=== PATIENT | male | born 2000 | race Caucasian/White ===

== ENCOUNTER → 2021-07-12 09:58 | Outpatient (CLI) | payer BC, SELFPAY | PROVIDERS: PCP Family Medicine; Visit Provider Nurse Practitioner | DX: Z20.822 Contact with and (suspected) exposure to COVID-19 (principal) | CPT/HCPCS: C9803; U0003; U0005 ==

== ENCOUNTER 2021-07-14 10:12 | Emergency (ER) | payer BC, SELFPAY ==
[2021-07-14 10:29] VITALS: BP 148/90; PULSE 77; RESP 16; TEMP 36.8; O2SAT 97; BMI 34.9
--- NOTE | 2021-07-14 10:56 | HMH.EDUTC ---
[facility] [place] Clinical Impression: Allergic reaction Qualifiers: Encounter type: initial encounter Qualified Code(s): T78.40XA - Allergy, unspecified, initial encounter Disposition: Home, Self-Care Condition on Discharge: Good Instructions: DI for General Allergic Reactions Additional Instructions: Avoid contact with the offending substance. Don't put the topical steroids (triamcinolone) on your face or your groin. Follow up with your regular doctor. 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 Prescriptions: Loratadine [Claritin 10mg Tablet] 10 mg PO DAILY 14 Days #14 tab Transmission Status: Received by [id number] methylPREDNISolone [Medrol] 4 mg PO DIRECTED 6 Days #21 packet Transmission Status: Received by [id number] Famotidine [Pepcid 20mg Tablet] 20 mg PO DAILY 14 Days #14 tab Transmission Status: Received by [id number] hydrOXYzine pamoate [Vistaril 25mg capsule] 25 mg PO Q6H PRN #30 cap PRN Reason: Itching Transmission Status: Received by [id number] Referrals: Shiva Balbuena MD [Primary Care Provider] - Forms: Work/School Release Time of Disposition: 11:12 Medical Decision Making - Medical Records Medical records reviewed: No: I reviewed the patient's medical records. - Kishan Inquiry Pt receiving controlled substance: No Vital Signs: 07/14/21 10:29 07/14/21 11:20 Temperature 98.2 F 98.1 F Temperature Source Oral Oral Pulse Rate 71 Pulse Rate [Left Radial] 77 Respiratory Rate 16 16 Blood Pressure 139/84 Blood Pressure [Right Arm] 148/90 H Blood Pressure Mean [Right Arm] 109 Blood Pressure Source [Right Arm] Automatic Cuff Blood Pressure Position [Right Arm] Sitting 02 Sat by Pulse Oximetry 97 Oxygen Delivery Method Room Air Room Air [facility] [place] H[place] - General Stated complaint: body rash Time Seen by Provider: 07/14/21 10:56 Mode of Arrival: Ambulatory Source of Information: Patient Limitations: No Limitations Description of Symptoms (Recalled from Triage Doc. by RN): pt to [facility] c/o intermittent rash. pt states he ate habachi over the weekend and tried a drink that contained apples unknowingly and he states he is allergic to apples. pt does not have this rash on arrival to [facility]. pt states the rash itches but is not painful. pt denies any sob or throat tightness associated with the rash. HEENT Symptoms (Recalled from RN notes): No Resp Symptoms (Recalled from RN notes): No Skin Symptoms (Recalled from RN notes): Yes MS Symptoms (Recalled from RN notes): No Functional Status (Recalled from RN notes): na - History of Present Illness Provider Complaint: He states that over the past 4 days he has had a rash on his arms, legs and body. The rash itches very badly. He states that the rash has came and went. At this time it is not too bad. He drank some apple drink before he realized what it was right before this started. He is very allergic to apples. - Related Data Previous Rx's Medication Instructions Recorded Famotidine [Pepcid 20mg Tablet] 20 mg PO DAILY 14 Days #14 tab 07/14/21 Loratadine [Claritin 10mg 10 mg PO DAILY 14 Days #14 tab 07/14/21 Tablet] hydrOXYzine pamoate [Vistaril 25mg 25 mg PO Q6H PRN #30 cap 07/14/21 capsule] methylPREDNISolone [Medrol] 4 mg PO DIRECTED 6 Days #21 07/14/21 packet Allergies Allergy/AdvReac Type Severity Reaction Status Date / Time latex Allergy Mild Verified 05/21/19 10:07 penicillin G Allergy Mild Verified 05/21/19 10:07 Latex, Natural Rubber Allergy Verified 05/21/19 10:07 AMOXICILLIN Allergy Unknown I-HIVES Uncoded 05/21/19 10:07 - Worker's Comp Is this a Worker's Comp case?: No [facility] History - Hepatitis A Screen Drug use history?: No High risk sexual behaviors?: No History of sexually transmitted infection?: No Currently employ
[2021-07-14 11:20] VITALS: BP 139/84; PULSE 71; RESP 16; TEMP 36.7; O2SAT 99
== END 2021-07-14 11:21 | disposition home or self-care (01) ==
PROVIDERS: Emergency Provider Nurse Practitioner Family; PCP Family Medicine
DX: L27.2 Dermatitis due to ingested food (principal); J45.909 Unspecified asthma, uncomplicated
CPT/HCPCS: 99202; G0463

== ENCOUNTER 2022-07-04 11:25 | Emergency (ER) | payer BC, SELFPAY ==
--- NOTE | 2022-07-04 12:55 | EXP.UTC ---
Discharge Plan Disposition Patient Disposition: Home, Self-Care Condition: Good Prescriptions Prescriptions: New azithromycin [Zithromax] 250 mg tablet 250 mg PO UD DOSE PK Qty: 6 0RF Rx Instructions: Take two (2) tablets today, then one (1) tablet days #2 thru #5 oseltamivir [Tamiflu] 75 mg capsule 75 mg PO BID Qty: 10 0RF cuopfmtcckvkmji-cprmlzqia-KA [Bromfed DM] 2-30-10 mg/5 mL Syrup 5 ml PO Q6H PRN (Reason: Cough) Qty: 240 0RF ondansetron 4 mg Tablet,Disintegrating 4 mg PO Q8H PRN (Reason: Nausea) Qty: 12 0RF No Action methylprednisolone 4 MG tablets,dose pack 4 mg PO DIRECTED 6 Days Qty: 21 0RF famotidine 20 MG tablet 20 mg PO DAILY 14 Days Qty: 14 0RF loratadine 10 MG tablet 10 mg PO DAILY 14 Days Qty: 14 0RF hydroxyzine pamoate 25 MG capsule 25 mg PO Q6H PRN (Reason: Itching) Qty: 30 0RF Referrals Follow up/Referrals: Provider,Referral, MD [Primary Care Provider] - See instructions Activity Restrictions/Add. Instructions Additional Instructions/Restrictions: Encourage him to drink fluids Watch his temperature and give him tylenol or ibuprofen for pain/fever Give the medication as prescribed. 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 GO TO THE EMERGENCY ROOM FOR ANY WORSENING OR LIFE THREATENING SYMPTOMS. Clinical Impressions Clinical Impression: Influenza A, Pharyngitis Stand Alone Forms Stand Alone Forms: Work/School Release Instructions Patient Instructions: DI for Influenza -- Adult, Oseltamivir, DI for Pharyngitis/Tonsillopharyngitis -- Adult Discharge ED Provider: Isac Jaimes [facility] General Stated complaint: Sore throat, strep test Time Seen by Provider: 07/04/22 12:55 History of Present Illness Provider Complaint: He states that he has had a very sore throat, chills, fever and a cough since yesterday. Related Data Previous Rx's Medication Instructions Recorded famotidine 20 mg tablet 20 mg PO DAILY 14 days #14 tabs 07/14/21 hydroxyzine pamoate 25 mg capsule 25 mg PO Q6H PRN Itching #30 caps 07/14/21 loratadine 10 mg tablet 10 mg PO DAILY 14 days #14 tabs 07/14/21 methylprednisolone 4 mg tablets in 4 mg PO DIRECTED 6 days #21 07/14/21 a dose pack packets azithromycin 250 mg tablet 250 mg PO UD DOSE PK #6 tabs 07/04/22 (Zithromax) ojjnsnqenpmhstp-orscpnzuxpobkur-HU 5 ml PO Q6H PRN Cough #240 mL 07/04/22 2 mg-30 mg-10 mg/5 mL oral syrup (Bromfed DM) ondansetron 4 mg disintegrating 4 mg PO Q8H PRN Nausea #12 tabs 07/04/22 tablet oseltamivir 75 mg capsule (Tamiflu) 75 mg PO BID #10 caps 07/04/22 Allergies Allergy/AdvReac Type Severity Reaction Status Date / Time latex Allergy Mild Verified 07/04/22 13:00 penicillin G Allergy Mild Verified 07/04/22 13:00 Latex, Natural Rubber Allergy Verified 07/04/22 13:00 AMOXICILLIN Allergy Unknown I-HIVES Uncoded 05/21/19 10:07 [facility] Social History Smoking Status: Never smoker alcohol intake: never substance use type: denies use current occupational status: unemployed and student Travel in the last 8 weeks: None household members: family housing: house ROS Obtained: Yes All systems reviewed & no additional complaints except as documented Constitutional Constitutional: Reports chills and Reports fever(s) Eyes Eyes: Denies eye discharge ENT Ears, Nose, Mouth, and Throat: Reports as per HPI Cardiovascular Cardiovascular: Denies chest pain Respiratory Respiratory: Denies chest congestion and Reports cough Gastrointestinal Gastrointestingal: Reports nausea; Denies abdominal pain, constipation, cramping, diarrhea or vomiting Musculoskeletal Musculoskeletal: Denies arthralgias Integumentary/Breasts Skin/Breast: Denies rash Neurologic Neurologic: Denies paresthesias Physical Exam General General appearance: alert and in no apparent distress Head Head exam: atraumatic, normocephalic and no
[2022-07-04 12:58] VITALS: BP 120/71; PULSE 81; RESP 18; TEMP 36.8; O2SAT 100; BMI 26.9
[2022-07-04 13:08] LABS: UTC Strep Screen (Rapid) Negative (Negative)
[2022-07-04 14:05] VITALS: BP 120/71; PULSE 81; RESP 18; TEMP 36.8
== END 2022-07-04 14:06 | disposition home or self-care (01) ==
PROVIDERS: Emergency Provider Nurse Practitioner Family
DX: J02.9 Acute pharyngitis, unspecified (principal); R50.9 Fever, unspecified; R11.0 Nausea; R05.9 Cough, unspecified; Z79.52 Long term (current) use of systemic steroids; Z79.899 Other long term (current) drug therapy; Z88.0 Allergy status to penicillin; Z88.1 Allergy status to other antibiotic agents; Z88.3 Allergy status to other anti-infective agents; Z91.040 Latex allergy status
CPT/HCPCS: 87880; 99213; G0463

== ENCOUNTER 2023-06-08 13:22 | Emergency (ER) | payer BC, SELFPAY ==
[2023-06-08 13:40] VITALS: BP 129/78; PULSE 85; RESP 18; TEMP 37.1; O2SAT 98; BMI 27.6
--- NOTE | 2023-06-08 13:52 | EXP.UTC ---
Discharge Plan Disposition Patient Disposition: Home, Self-Care Condition: Good Prescriptions Prescriptions: New triamcinolone acetonide 0.1 % cream 1 applic topical BID PRN (Reason: itching) Qty: 30 0RF diphenhydramine HCl [Diphenhydramine HCl] 25 mg capsule 25 mg PO Q6HP PRN (Reason: Itching) Qty: 30 0RF methylprednisolone 4 mg Tablets,Dose Pack 4 mg PO DIRECTED Qty: 21 0RF Referrals Follow up/Referrals: Shiva Balbuena MD [Primary Care Provider] - See instructions Activity Restrictions/Add. Instructions Additional Instructions/Restrictions: Try to identify and avoid contact with the offending substance. Don't start the oral steroids until tomorrow. The diphenhydramine (benedryl) will make you drowsy, so don't drive or operate heavy machinery after taking it. Don't put the topical steroids (triamcinolone) on your face or your groin. Follow up with your regular doctor. GO TO THE ER FOR ANY WORSENING SYMPTOMS OR CONCERNS Clinical Impressions Clinical Impression: Allergic reaction, Contact dermatitis Instructions Patient Instructions: DI for Contact Dermatitis, DI for General Allergic Reactions Discharge ED Provider: Isac Jaimes [facility] General Stated complaint: rash all over Time Seen by Provider: 06/08/23 13:52 History of Present Illness Provider Complaint: He states that he has had a itchy rash on his face, neck, bilateral arms and body. He states that his symptoms began after he applied Halloween make up and a wig. He has a history of being allergic to latex. He denies any shortness of breath, chest pain, wheezing, and swelling in his mouth or lips. Related Data Previous Rx's Medication Instructions Recorded diphenhydramine HCl 25 mg capsule 25 mg PO Q6HP PRN Itching #30 caps 06/08/23 methylprednisolone 4 mg tablets in 4 mg PO DIRECTED #21 tabs 06/08/23 a dose pack triamcinolone acetonide 0.1 % 1 applic topical BID PRN itching 06/08/23 topical cream #30 grams Allergies Allergy/AdvReac Type Severity Reaction Status Date / Time latex Allergy Mild Verified 06/08/23 13:57 penicillin G Allergy Mild Verified 06/08/23 13:57 Latex, Natural Rubber Allergy Verified 06/08/23 13:57 AMOXICILLIN Allergy Unknown I-HIVES Uncoded 05/21/19 10:07 [facility] Disclaimer: The information contained in this section may have been updated after the patient was seen, as this information can be updated by other users. Social History Smoking Status: Never smoker alcohol intake: never substance use type: denies use current occupational status: unemployed and student Travel in the last 8 weeks: None household members: family housing: house ROS Obtained: Yes All systems reviewed & no additional complaints except as documented Constitutional Constitutional: Denies chills and Denies fever(s) Eyes Eyes: Denies eye discharge ENT Ears, Nose, Mouth, and Throat: Denies dizziness, Denies otalgia and Denies sore throat Cardiovascular Cardiovascular: Denies chest pain Respiratory Respiratory: Denies shortness of breath, Denies chest congestion, Denies cough, Denies stridor and Denies wheezing Gastrointestinal Gastrointestingal: Denies nausea or vomiting Musculoskeletal Musculoskeletal: Reports system reviewed and no additional complaints, except as documented and Denies arthralgias Integumentary/Breasts Skin/Breast: Reports as per HPI and Reports rash Neurologic Neurologic: Denies dizziness and Denies paresthesias Allergic/Immunologic Allergic/Immunologic: Denies wheezing Physical Exam General General appearance: alert and in no apparent distress Head Head exam: atraumatic, normocephalic and normal inspection Eye Eye exam: Present normal appearance, PERRL and EOMI ENT ENT exam: Present normal exam, normal oropharynx, mucous membranes moist, TM's normal bilaterally and normal external ear exam Neck Neck exam
[2023-06-08 14:48] VITALS: BP 129/78; PULSE 85; RESP 18; TEMP 37.1; O2SAT 98
== END 2023-06-08 14:48 | disposition home or self-care (01) ==
PROVIDERS: Emergency Provider Nurse Practitioner Family; PCP Family Medicine
DX: T78.40XA Allergy, unspecified, initial encounter (principal); L50.0 Allergic urticaria
CPT/HCPCS: 96372; 99212; 99214; G0463

== ENCOUNTER 2023-06-15 12:36 | Emergency (ER) | payer BC, SELFPAY ==
[2023-06-15 12:40] VITALS: BP 136/86; PULSE 74; RESP 19; TEMP 37.1; O2SAT 99; BMI 28.5
--- NOTE | 2023-06-15 12:42 | EXP.UTC ---
Discharge Plan Disposition Patient Disposition: Home, Self-Care Condition: Good Prescriptions Prescriptions: New prednisone 20 mg tablet 20 mg PO DIRECTED Qty: 18 0RF Rx Instructions: 3 tabs daily X 3 days, then 2 tabs daily X 3 days, then 1 tab daily X 3 days, then 1/2 tab daily X 4 days hydroxyzine HCl 25 mg tablet 25 mg PO TID PRN (Reason: itching) Qty: 60 0RF famotidine 40 mg tablet 40 mg PO BID Qty: 20 0RF No Action triamcinolone acetonide 0.1 % cream 1 applic topical BID PRN (Reason: itching) Qty: 30 0RF diphenhydramine HCl [Diphenhydramine HCl] 25 mg capsule 25 mg PO Q6HP PRN (Reason: Itching) Qty: 30 0RF methylprednisolone 4 mg Tablets,Dose Pack 4 mg PO DIRECTED Qty: 21 0RF Referrals Follow up/Referrals: Shiva Balbuena MD [Primary Care Provider] - See instructions Bud Gallo [Referring] - See instructions Clinical Impressions Clinical Impression: Urticaria Instructions Patient Instructions: DI for Hives Discharge ED Provider: Rach Ferrera [facility] [place] HPI General Stated complaint: possible allergic reaction, rash Time Seen by Provider: 06/15/23 13:00 History of Present Illness Provider Complaint: Patient broke out in a rash after wearing a halloween costume last week. He started itching just within a few minutes. Has taken Medrol Dose Pack, Benadryl. Some of the rash has resolved, but still has pretty significant hives on abdomen and left arm. No difficulty breathing. Onset (ago): week(s) (1) Associated symptoms: rash Treatments prior to arrival: other (Medrol Dose Pack, Benadryl) Related Data Previous Rx's Medication Instructions Recorded diphenhydramine HCl 25 mg capsule 25 mg PO Q6HP PRN Itching #30 caps 06/08/23 methylprednisolone 4 mg tablets in 4 mg PO DIRECTED #21 tabs 06/08/23 a dose pack triamcinolone acetonide 0.1 % 1 applic topical BID PRN itching 06/08/23 topical cream #30 grams famotidine 40 mg tablet 40 mg PO BID #20 tabs 06/15/23 hydroxyzine HCl 25 mg tablet 25 mg PO TID PRN itching #60 tabs 06/15/23 prednisone 20 mg tablet 20 mg PO DIRECTED #18 tabs 06/15/23 Allergies Allergy/AdvReac Type Severity Reaction Status Date / Time latex Allergy Mild Verified 06/08/23 13:57 penicillin G Allergy Mild Verified 06/08/23 13:57 Latex, Natural Rubber Allergy Verified 06/08/23 13:57 AMOXICILLIN Allergy Unknown I-HIVES Uncoded 05/21/19 10:07 [facility] Disclaimer: The information contained in this section may have been updated after the patient was seen, as this information can be updated by other users. Medical History (Updated 06/15/23 @ 13:05 by DAVIDSON Lewis) Asthma Social History Smoking Status: Never smoker alcohol intake: never substance use type: denies use current occupational status: unemployed and student Travel in the last 8 weeks: None household members: family housing: house ROS Obtained: Yes All systems reviewed & no additional complaints except as documented Integumentary/Breasts Skin/Breast: Reports pruritus and Reports rash Physical Exam General General appearance: alert and in no apparent distress Head Head exam: atraumatic, normocephalic and normal inspection Eye Eye exam: Present normal appearance, PERRL and EOMI ENT ENT exam: Present normal exam, normal oropharynx, mucous membranes moist, TM's normal bilaterally and normal external ear exam Neck Neck exam: Present normal inspection, full ROM and trachea midline; Absent meningismus or lymphadenopathy Chest Chest inspection: Present normal inspection and symmetric chest wall rise; Absent tenderness Respiratory Respiratory exam: Present normal lung sounds bilaterally; Absent respiratory distress Cardiovascular Cardiovascular exam: Present regular rate and normal rhythm; Absent JVD Abdominal Exam Abdominal exam: Present soft and normal bowel sounds; Absen
[2023-06-15 13:11] VITALS: BP 136/86; PULSE 74; RESP 19; TEMP 37.1; O2SAT 99
== END 2023-06-15 13:20 | disposition home or self-care (01) ==
PROVIDERS: Emergency Provider Physician Assistant; PCP Family Medicine
DX: L50.0 Allergic urticaria; J45.909 Unspecified asthma, uncomplicated
CPT/HCPCS: 96372; 99212; 99214; G0463; J1040

== ENCOUNTER 2023-10-26 14:09 | Outpatient (CLI) | payer BC, SELFPAY ==
[2023-10-26 15:01] LABS: Basophils # 0.1 K/mm3 (0-0.2); Basophils % 0.8 % (0.1-2.0); Eosinophils # 0.2 K/mm3 (0.0-0.4); Eosinophils % 2.6 % (0.1-12.0); Hematocrit 48.8 % (42.0-52.0); Hemoglobin 16.6 g/dL (14.1-18.0); Lymphocytes # 2.1 K/mm3 (0.7-4.5); Lymphocytes % 26.8 % (10-50); Mean Corpuscular Hemoglobin 29.5 pg (27.0-31.2); Mean Corpuscular Volume 86.8 fl (80-94); Monocytes # 0.5 K/mm3 (0.1-1.0); Monocytes % 6.4 % (1.7-9.3); Neutrophils # 4.9 K/mm3 (1.8-7.8); Neutrophils % 63.4 % (37.0-80.0); Platelet Count 216 K/mm3 (142-424); Red Blood Count 5.63 M/mm3 (4.60-6.20); White Blood Count 7.7 K/mm3 (4.8-10.8)
[2023-10-26 15:18] LABS: Chloride 103 mmol/L (98-107); Sodium 140 mmol/L (136-145)
[2023-10-26 15:21] LABS: Alanine Aminotransferase 15 U/L (12-78); Albumin Level 4.6 g/dl (3.5-5.0); Albumin/Globulin Ratio 2.2 (1.1-1.8); Alkaline Phosphatase 43 U/L (38-126); Aspartate Amino Transferase 24 U/L (17-59); Bilirubin,Total 1.4 mg/dl (0.2-1.3); Blood Urea Nitrogen 17 mg/dl (9-20); Calcium 9.3 mg/dl (8.4-10.2); Carbon Dioxide 31 mmol/L (22.0-30.0); Estimated Glomerular Filt Rate 140 ml/min (>60); GFR (African American) 169 ML/MIN (>60); Globulin 2.1 g/dL (1.3-3.2); Glucose 77 mg/dl (74-100); Total Protein,Serum 6.7 g/dl (6.3-8.2)
[2023-10-26 15:41] LABS: 25-OH Vitamin D, Total 23.1 ng/mL (30-100)
[2023-10-26 15:51] LABS: Free T4 (Free Thyroxine) 1.06 ng/dl (0.78-2.19)
[2023-10-27 18:10] LABS: Thyroid Peroxidase Antibodies 11 IU/mL (0-34)
[2023-10-29 10:09] LABS: Antinuclear Antibodies, IFA Negative (.)
[2023-10-29 16:16] LABS: Thyroglobulin Level <1.0 IU/mL (0.0-0.9)
[2023-11-01 14:09] LABS: Miscellaneous Test SEE COMMENTS
[2023-11-03 08:36] LABS: F026-IgE Pork 0.82 kU/L (Class II); F088-IgE Lamb 0.74 kU/L (Class II); Immunoglobulin E, Total 128 IU/mL (6-495); O215-IgE Alpha-Gal 0.11 kU/L (Class 0/I)
== END 2023-10-26 23:59 ==
LOC: LAB 14:10
PROVIDERS: PCP Family Medicine; Visit Provider Allergy & Immunology
DX: L50.8 Other urticaria (principal); E55.9 Vitamin D deficiency, unspecified; Z79.899 Other long term (current) drug therapy
CPT/HCPCS: 36415; 80053; 82306; 83520; 84439; 84443; 85025; 86038; 86352; 86376; 86800

== ENCOUNTER 2025-04-28 11:34 | Emergency (ER) | payer BC, SELFPAY ==
[2025-04-28 11:37] VITALS: BP 145/89; PULSE 94; RESP 20; TEMP 36.6; O2SAT 100; BMI 28.1
--- NOTE | 2025-04-28 12:03 | ED_ITS ---
<Statement entered by Abdullahi Yoo MD - 04/28/25 16:11> I consulted the PRIMO, and we discussed the complexity of the problems being addressed. I approved the treatment and management plan for this patient's care in the emergency department, thus performing a substantial portion of the medical decision making. Will MD Naila Discharge Plan Disposition Patient Disposition: Home, Self-Care Condition: Good Prescriptions Prescriptions: New methocarbamol 750 mg tablet 750 mg PO HS Qty: 14 0RF No Action qzlrileyxxcvptr-[id number]-IF [Bromfed DM] 2-30-10 mg/5 mL syrup 5 ml PO Q4-6H PRN (Reason: cold symptoms) Qty: 118 0RF Referrals Follow up/Referrals: Shiva Balbuena MD [Primary Care Provider, Medical] - See instructions Activity Restrictions/Add. Instructions Additional Instructions/Restrictions: Please follow-up with your family doctor in the upcoming days/weeks. Please utilize ibuprofen and Tylenol as needed for symptomatic relief, please utilize your muscle relaxer as needed, note that this will make you drowsy. Would recommend following up with your family doctor, for possible MRI of your lower spine, and possible physical therapy referral. Could benefit from strengthening exercises/at home exercises. Clinical Impressions Clinical Impression: Lumbar spine strain Instructions Patient Instructions: DI for Low Back Pain, DI for Back Strain or Sprain Print Language Print Language: Citizen Of The [place] Discharge ED Provider: Abdullahi Yoo General Adult HPI General Chief complaint: Back Pain/Injury Stated complaint: AO 03/28/25 Back Pain, Fell from Porch Time Seen by Provider: 04/28/25 11:57 Mode of Arrival: Ambulatory Source of Information: Patient and Relative Description of Symptoms (Recalled from ER Triage Doc. by RN): patient presents to the ED for lower back pain. patient stated a few months ago he was on his back porch and fell hitting his spine area and it has been aggravating him ever since . patient rates current pain 7/10. denies numbness in bilateral lower extremities and has no issues walking. History of Present Illness HPI narrative: 25-year-old male presents the emergency department accompanied by his grandmother for a 3 to 4-month history of lower left-sided spine pain, patient endorses remote history around 3 to 4 months ago when he slipped , on his front porch after he was raining, describes as a ground-level fall, striking his back on the ground, patient states that it has been aggravating , him ever since. States is worsened when he does repetitive motions at work, he denies any radicular type symptomatology, denies any saddle anesthesia, denies any urinary bladder or bowel dysfunction, denies any numbness or tingling, denies any upper or lower extremity weakness, denies any fever chills chest pain shortness of b reath headache lightheadedness, no abdominal pain no nausea no vomiting no constipation no diarrhea, patient is a non-smoker, denies any alcohol or drug use, has no other relevant past medical history, no surgical history takes no other medications daily at home. No other recent trauma or injury per history. Please note that above description of symptoms, in this electronic medical record under categorization of recalled from ER triage doctor by RN are reflective of an initial nursing assessment, however, is not reflective of my full history and physical exam that was personally taken and clarified. Consequentially, this preceding description of symptoms, which may include the patient's categorized chief complaint in the EMR, do not reflect my personal clinical impression, and the ultimate description of history of present illness and patient stated complaints should be deferred to this section of the note. Unless stated otherwise or congruent with this section of the note, additional signs, symptoms, or incongruence should be interpreted as inaccurate with my clinical impression. Onset (ago): month(s) Related Data Previous Rx's ?Medication ?Instructions ?Recorded waehherrsoxwzou-iaqnqzxoboyxqvk-DI 5 ml PO Q4-6H PRN c old symptoms 10/10/24 2 mg-30 mg-10 mg/5 mL oral syrup #118 mL (Bromfed DM) methocarbamol 750 mg tablet 750 mg PO HS #14 tabs 04/07 10/28 Allergies Allergy/AdvReac Type Severity Reaction Status Date / Time latex Allergy Mild Unknown Verified 04/28/25 12:18 allergy reaction penicillin G Allergy Mild Unknown Verified 04/28/25 12:18 allergy reaction Latex, Natural Rubber Allergy Unknown Verified 04/28/25 12:18 allergy reaction PFSH PFS Disclaimer: The information contained in this section may have been updated after the patient was seen, as this information can be updated by other users. Medical History Asthma Social History Smoking Status: Never smoker alcohol intake: never substance use type: denies use current occupational status: unemployed and student Travel in the last 8 weeks?: None household members: family housing: house Have you lived/traveled outside [place] in past 30 days?: No Contact w/someone who lives/traveled outside [place] past 30 days?: No Exposure to someone with infectious disease in past 14 days?: No Do you have a fever (greater than 100.4 F or 38 C)?: No Have you tested positive for COVID-19?: No Exposed to someone with COVID-19 in past 14 days?: No Do you have a sore throat?: No Do you have a cough?: No Do you have any weakness?: No Do you have any diarrhea?: No Are you experiencing any unusual bleeding?: No Do you have any muscle aches/pain?: No Do you have any abdominal pain?: No Are you experiencing loss of taste or smell?: No Other Medical History Have you received the Pneumonia Vaccine: No ROS Obtained: Yes All systems reviewed & no additional complaints except as documented Physical Exam General General appearance: alert and in no apparent distress Head Head exam: atraumatic and normocephalic Eye Eye exam: Present PERRL and EOMI ENT ENT exam: Present mucous membranes moist Neck Neck exam: Present normal inspection Chest Chest inspection: Present normal inspection and symmetric chest wall rise Respiratory Respiratory exam: Present normal lung sounds bilaterally; Absent respiratory distress Cardiovascular Cardiovascular exam: Present regular rate and normal rhythm Abdominal Exam Abdominal exam: Present soft; Absent tenderness, guarding, rebound or rigidity Extremities Exam Extremities exam: Present normal inspection Back Exam Back exam: Present paraspinal tenderness; Absent vertebral tenderness, straight leg raise (R) or straight leg raise (L) Comment: Mild paraspinal tenderness palpation to the left lower lumbar spine Neurological Exam Neurological exam: Present alert, oriented X3 and other (5 out of 5 strength in bilateral lower extremities, no gross sensation deficit, negative straight leg test bilaterally) Psychiatric Psychiatric exam: Present normal affect Skin Skin exam: Present warm and dry Medical Decision Making Medical Records Medical records reviewed: Yes I reviewed the patient's medical records. Screening: Per USPSTF and CDC recommendations, given the prevalence of disease in our region, it is our hospital?s policy to screen for HIV and viral Hepatitis for all patients aged 18 and over and those with ongoing risk factors. Kishan Inquiry Pt receiving controlled substance: No Kishan was queried for this patient: No Vital Signs: 04/28/25 11:37 Temperature 97.8 F Temperature Source Temporal Artery Scan Pulse Rate [Right Radial] 94 H Respiratory Rate 20 Blood Pressure [Right Arm] 145/89 H Blood Pressure Mean [Right Arm] 107 Blood Pressure Source [Right Arm] Automatic Cuff Blood Pressure Position [Right Arm] Sitting 02 Sat by Pulse Oximetry 100 Oxygen Delivery Method Room Air Orders (Tests/Meds): ED MEDICATIONS Generic Name Dose Route Start Last Admin Trade Name Freq PRN Reason Stop Dose Admin Ketorolac Tromethamine 15 mg 04/28/25 12:12 Ketorolac 15mg/Ml Vial IM 04/28/25 12:13 ONCE ONE Lidocaine 1 each 04/28/25 12:12 Lidocaine 5% Transdermal Patch TD 04/28/25 12:13 ONCE ONE Medical Decision Narrative: 25-year-old male presents the emergency department accompanied by grandmother, for 3 to 4-month history of lower lumbar spine pain after remote injury 3 to 4 months ago, differential diagnose include but not limited to, acute lumbar sacral strain, DDD of the lumbar spine, among others. I discussed this patient's case with the attending physician Dr. Yoo I had a long discussion with the patient and family at bedside, offered advanced imaging studies to the patient and family at the bedside, at this time they would like to pursue symptomatic relief, and forego advanced imaging shared decision making was utilized I think this is appropriate. 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 Patient has no other red flag signs or symptoms. Opted for symptomatic management. Will treat the patient with 15 mg IM Toradol, as well as lidocaine patch here in the emergency department, will send the patient home with 750 mg p.o. methocarbamol as needed for muscle spasm/pain. Patient was given strict ED return precautions. Patient voiced understanding and agreement with the current treatment plan/discharge plan. Patient will follow-up with PCP and other providers in the upcoming days/weeks. Critical Care Critical Care Time Critical Care Time: No
[2025-04-28] MEDS: KETOROLAC 15MG/ML VIAL 15 MG IM (12:20)
[2025-04-28] MEDS: LIDOCAINE 5% TRANSDERMAL PATCH 1 EACH TD (12:21)
[2025-04-28 12:26] VITALS: BP 141/76; PULSE 85; RESP 15; TEMP 37; O2SAT 99
== END 2025-04-28 12:27 | disposition home or self-care (01) ==
PROVIDERS: Emergency Provider Student in an Organized Health Care Education/Training Program; PCP Family Medicine
DX: S39.012A Strain of muscle, fascia and tendon of lower back, initial encounter (principal); W19.XXXA Unspecified fall, initial encounter
CPT/HCPCS: 96372; 99283; 99284; J1885